=== PATIENT | female | born 2000 ===

== ENCOUNTER 2021-05-26 03:53 | Emergency (ER) | payer OTHER ==
[~2021-05-26] VITALS: Ht 160 cm; Wt 85.3 kg
[2021-05-26] MEDS ORDERED: NEOPOLHCSU RIGHTEAR (06:18)
== END 2021-05-26 06:30 | disposition home or self-care (01) ==
LOC: ER 03:53
DX: T16.1XXA Foreign body in right ear, initial encounter (principal)
CPT/HCPCS: 99282